=== PATIENT | male | born 1950 | race Caucasian/White ===

== ENCOUNTER 2023-05-22 00:30 | Day surgery (SDC) | payer MEDICARE, SELFPAY ==
[2023-04-24 13:42] VITALS: BMI 33.5
--- NOTE | 2023-05-18 11:29 | SUR.PREOP ---
Patient called regarding upcoming procedure. Unable to leave message.
--- NOTE | 2023-05-21 16:06 | PM.HPGS ---
History of Present Illness History of Present Illness Consent: Risks, benefits, and alternatives have been discussed and questions answered. Patient agrees to proceed with procedure. Chief complaint: hx colon polyps Narrative: Brian Cevallos is a 73 year old male Referred for colon cancer screening. He has had polyps removed at the time of several his colonoscopies, most recently 4 years ago. Review of Systems Review of Systems: All systems reviewed & are unremarkable except as noted in HPI and below PMFSH Past Medical History Medical History CKD (chronic kidney disease) stage 3, GFR 30-59 ml/min Dyslipidemia Essential (primary) hypertension Glaucoma History of colon polyps Surgical History Surgical History History of tonsillectomy and adenoidectomy 4th grade Hx of colonoscopy 04/2018 [place] teeth extracted during high school Family History Family History Father Heart disease CAD Acute myocardial infarction Hypertension Diabetes mellitus Social History Social History Smoking packs per day: 0.5 Smoking cigarettes per day: 10.0 Years smoked: 2 Smoking pack-years: 1.00 Smoking status: Former smoker Tobacco type: cigarettes Second hand tobacco smoke exposure: No Alcohol intake: never Substance use: never Substance use type: does not use Lack of Transportation: No Lack of Food: Never True Current Housing: I Have Housing Concerned About Future Housing: No Difficulty Paying Gas/Electric Bills: No Difficulty Paying for Meds: No Currently Unemployed: No Education: Bachelor's Degree Difficulty w/ Childcare or Family Care: No Living arrangements: with family Additional living arrangements comments: Occupation/Education: retired Gender identity (if verbalized by the patient): Male Sexual Orientation (if Verbalized by the Patient): Straight or Heterosexual Spiritual care concerns: No Meds Home Medications and Allergies Home Medications Medication Instructions Recorded Confirmed Type cholecalciferol (vitamin D3) 50 50 mcg PO .QOD 07/03/22 04/24/23 History mcg (2,000 unit) capsule lisinopril 20 1 tablet PO DAILY #90 tabs 04/20/23 01/23/24 Rx mg-hydrochlorothiazide 12.5 mg tablet Allergies Allergy/AdvReac Type Severity Reaction Status Date / Time No Known Allergies Allergy Verified 05/22/23 07:22 Exam Resp: Auscultation: clear to auscultation bilaterally Cardio: Rate: regular rate Rhythm: regular rhythm GI: GI Palp: Yes Soft to palpation and No Tenderness to palpation present (GI) Assessment and Plan Assessment and plan (1) History of colon polyps: Code(s): Z86.010 - Personal history of colonic polyps Status: Acute Assessment and Plan: Colonoscopy with possible biopsy or polypectomy or cautery or injection of substances.
[2023-05-22 07:23] VITALS: BP 108/76; PULSE 88; RESP 18; TEMP 36.1; O2SAT 97
--- NOTE | 2023-05-22 07:59 | WPDANESEPPF ---
Anes - Initial Pre Proc Eval Procedure: Operation Date: 05/22/23 08:30 Proposed Procedures p Colonoscopy - Leonid Ashby MD Date/Time: 05/22/23 07:59 Surgeon: Leonid Ashby MD Pre Op Diagnosis: hx colon polyps Patient Data Age: 73 Gender: M Height: 1.8 m Weight: 108.4 kg Last Vital Signs Temp 97 F L 05/22/23 07:23 Pulse 88 05/22/23 07:23 Resp 18 05/22/23 07:23 BP 108/76 05/22/23 07:23 Pulse Ox 97 05/22/23 07:23 O2 Del Method Room Air 05/22/23 07:23 Allergies Allergy/AdvReac Type Severity Reaction Status Date / Time No Known Allergies Allergy Verified 05/22/23 07:22 Home Medications Medication Instructions Recorded Confirmed Type cholecalciferol (vitamin D3) 50 50 mcg PO .QOD 07/03/22 04/24/23 History mcg (2,000 unit) capsule lisinopril 20 1 tablet PO DAILY #90 tabs 07/20/22 04/24/23 Rx mg-hydrochlorothiazide 12.5 mg tablet Patient hx anesthesia problems: none Family hx anesthesia problems: none Results Review: All pre-operative results and documents have been reviewed as part of the pre-operative evaluation. [facility] Past Medical History Medical History CKD (chronic kidney disease) stage 3, GFR 30-59 ml/min Dyslipidemia Essential (primary) hypertension Glaucoma History of colon polyps Surgical History Surgical History History of tonsillectomy and adenoidectomy 4th grade Hx of colonoscopy 04/2018 [place] teeth extracted during high school Family History Family History Father Heart disease CAD Acute myocardial infarction Hypertension Diabetes mellitus Social History Social History Smoking packs per day: 0.5 Smoking cigarettes per day: 10.0 Years smoked: 2 Smoking pack-years: 1.00 Smoking status: Former smoker Tobacco type: cigarettes Second hand tobacco smoke exposure: No Alcohol intake: never Substance use: never Substance use type: does not use Lack of Transportation: No Lack of Food: Never True Current Housing: I Have Housing Concerned About Future Housing: No Difficulty Paying Gas/Electric Bills: No Difficulty Paying for Meds: No Currently Unemployed: No Education: Bachelor's Degree Difficulty w/ Childcare or Family Care: No Living arrangements: with family Additional living arrangements comments: Occupation/Education: retired Gender identity (if verbalized by the patient): Male Sexual Orientation (if Verbalized by the Patient): Straight or Heterosexual Spiritual care concerns: No Anes - Eval Final PreProcedure Day of Procedure 05/22/23 07:59 Patient weight: obese Heart: regular rate and rhythm Lungs: clear to auscultation Airway: Mallampati scale class II Neurological: alert and oriented Last oral intake: >/= 8 hours ASA classification: III Emergent: no Anesthetic plan: proceed Anesthesia type and monitoring: general GIVS and standard monitoring Results Review: All pre-operative results and documents have been reviewed as part of the pre-operative evaluation. Informed Consent: The patient's anesthetic plan and its attendant risks and benefits were discussed with the patient/family/POA. Questions were solicited and answers provided to the satisfaction of the patient/family/POA.
[2023-05-22] MEDS: LACTATED RINGERS 1,000 ML 150 ML IV CONT (08:55)
[2023-05-22] MEDS: SIMETHICONE ORAL SUSPENSION 20 MG/0.3 ML 30 ML BOTTLE 0.6 ML IRRIGATION (09:04)
[2023-05-22 09:21] VITALS: BP 91/58; PULSE 76; RESP 22; O2SAT 97
[2023-05-22 09:31] VITALS: BP 93/61; PULSE 74; RESP 17; O2SAT 97
[2023-05-22 09:41] VITALS: BP 93/60; PULSE 70; RESP 20; O2SAT 93
== END 2023-05-22 09:48 | disposition home or self-care (01) ==
PROVIDERS: PCP Family Medicine; Visit Provider Internal Medicine Gastroenterology
PROC: 0DJD8ZZ Inspection of Lower Intestinal Tract, Via Natural or Artificial Opening Endoscopic (ICD-10-PCS; CPT 45378; principal; 2023-05-22 08:30)
DX: Z12.11 Encounter for screening for malignant neoplasm of colon (principal); D12.5 Benign neoplasm of sigmoid colon; K57.30 Diverticulosis of large intestine without perforation or abscess without bleeding; N18.30 Chronic kidney disease, stage 3 unspecified; E78.5 Hyperlipidemia, unspecified; I12.9 Hypertensive chronic kidney disease with stage 1 through stage 4 chronic kidney disease, or unspecified chronic kidney disease; Z87.891 Personal history of nicotine dependence
CPT/HCPCS: 45380; 88305; J2704; J7120